=== PATIENT | female | born 1970 | race Caucasian/White ===

== ENCOUNTER 2022-07-04 20:42 | Inpatient (IN) | payer BC ==
[2022-07-04] MEDS ORDERED: cefTRIAXone\\ROCEPHIN 2 GM VIAL ONE (21:24)
[2022-07-04 21:38] LABS: #Basophils 0.1 10x3/uL (0.0-0.2); #Eosinphils 0.1 10x3/uL (0.0-0.5); #Monocytes 1.3 10x3/uL (0.0-1.1); #Neutrophils 11.4 10x3/uL (1.5-8.4); %Basophils 0.5 % (0.0-2.0); %Eosinophils 0.9 % (0.0-6.0); %Lymphocytes 11.2 % (18.0-47.0); %Monocytes 8.5 % (0.0-10.0); %Neutrophils 77.1 % (40.0-75.0); Hemoglobin 12.9 g/dL (12.0-15.5); Mean Corpuscular HGB CONC 34.6 g/dL (32.0-36.0); Mean Corpuscular Hemoglobin 27.9 pg (27.0-33.0); Mean Corpuscular Volume 80.7 fl (81.6-98.3); Mean Platelet Volume 10.1 fl (7.4-10.4); Platelet Count 374 10x3/uL (150-450); Red Blood Cell (RBC) Count 4.62 10x6/uL (3.90-5.03); White Blood Cell (WBC) Count 14.9 10x3/uL (3.5-10.5)
[2022-07-04 21:46] LABS: ALT (SGPT) 17 U/L (8-55); AST (SGOT) 18 U/L (5-34); Albumin 3.7 g/dL (3.5-5.0); Alkaline Phosphatase 143 U/L (40-110); Anion Gap 17 mmol/L (10-20); BUN (Urea Nitrogen) 8 mg/dL (9.8-20.1); Bilirubin, Total 0.4 mg/dL (0.2-1.2); Calc. Creatinine Clearance 0 mL/min (70-130); Carbon Dioxide 26 mmol/L (22-29); Chloride 96 mmol/L (98-107); Estimated GFR 95; Globulin 2.4 g/dL (2.4-3.5); Protein, Total 6.1 g/dL (6.0-8.3); Sodium 136 mmol/L (136-145)
[2022-07-04 21:47] LABS: Glucose 477 mg/dL (70-105)
[2022-07-04] MEDS ORDERED: Cefepime 2 GM VIAL ONE (21:47)
[2022-07-04] MEDS ORDERED: HYDROcodone/Acetaminophen 5/325 mg Tablet PO PRN (23:20)
[2022-07-04] MEDS ORDERED: Ondansetron ODT 4 MG TAB PO PRN (23:20)
[2022-07-04] MEDS ORDERED: Dextrose 50% Abboject 50 ML SYRINGE SLOW IVP PRN (23:20)
[2022-07-04] MEDS ORDERED: Ondansetron PF 4 MG/2 ML Vial IVP PRN (23:20)
[2022-07-04] MEDS ORDERED: Dextrose 5% in Water 1,000 ML IV PRN (23:20)
[2022-07-04] MEDS ORDERED: Potassium Chloride 10 MEQ in Premix Bag 1 BAG IVPB SCH (23:30)
[2022-07-04] MEDS ORDERED: Potassium Bicarbonate/Cit Ac 25 MEQ TAB ONE (23:37)
[2022-07-05 01:06] LABS: Lactic Acid 1.7 mmol/L (0.5-2.2)
[2022-07-05 01:07] VITALS: BMI 29.2
[2022-07-05] MEDS: Sodium Chloride 0.9% 1,000 ML IV SCH ×4 (01:22→23:05)
[2022-07-05] MEDS: HumaLOG 300 UNITS/3 ML VIAL SC PRN ×3 (01:22→20:19)
[2022-07-05 02:47] LABS: SARS-CoV-2 NAA Rapid Test Not Detected (NotDetected)
[2022-07-05 04:49] LABS: ALT (SGPT) 12 U/L (8-55); AST (SGOT) 10 U/L (5-34); Albumin 3.2 g/dL (3.5-5.0); Alkaline Phosphatase 110 U/L (40-110); Anion Gap 12 mmol/L (10-20); BUN (Urea Nitrogen) 7 mg/dL (9.8-20.1); Bilirubin, Total 0.3 mg/dL (0.2-1.2); Calc. Creatinine Clearance 144 mL/min (70-130); Calcium 8.4 mg/dL (7.8-10.44); Carbon Dioxide 28 mmol/L (22-29); Chloride 102 mmol/L (98-107); Estimated GFR 112; Globulin 2.8 g/dL (2.4-3.5); Glucose 80 mg/dL (70-105); Sodium 139 mmol/L (136-145)
[2022-07-05 04:55] LABS: #Basophils 0.1 10x3/uL (0.0-0.2); #Eosinphils 0.2 10x3/uL (0.0-0.5); #Monocytes 1.4 10x3/uL (0.0-1.1); #Neutrophils 9.5 10x3/uL (1.5-8.4); %Basophils 0.6 % (0.0-2.0); %Eosinophils 1.8 % (0.0-6.0); %Lymphocytes 15.2 % (18.0-47.0); %Monocytes 9.9 % (0.0-10.0); %Neutrophils 69.6 % (40.0-75.0); Hemoglobin 11.4 g/dL (12.0-15.5); Mean Corpuscular HGB CONC 34.7 g/dL (32.0-36.0); Mean Corpuscular Hemoglobin 28.2 pg (27.0-33.0); Mean Corpuscular Volume 81.4 fl (81.6-98.3); Platelet Count 340 10x3/uL (150-450); RBC Distribution Width 11.9 % (11.5-14.5); Red Blood Cell (RBC) Count 4.04 10x6/uL (3.90-5.03); White Blood Cell (WBC) Count 13.7 10x3/uL (3.5-10.5)
[2022-07-05] MEDS ORDERED: FLU VACC QS2022-23(6MOS UP)/PF 60 MCG/0.5 ML SYRINGE IM ONE (09:00)
[2022-07-05] MEDS ORDERED: Venlafaxine HCl XR 75 MG CAP PO SCH (09:00)
[2022-07-05] MEDS ORDERED: Electrolyte Replacement Protocol 1 EACH FS SCH (09:45)
[2022-07-05] MEDS ORDERED: Cefepime 2 GM in Sodium Chloride 0.9% 100 ML IVPB SCH (10:00)
[2022-07-05] MEDS ORDERED: Magnesium 2 GM/50 ML(in water) 2 GM in Premix Bag 1 BAG IVPB SCH (11:00)
[2022-07-05] MEDS ORDERED: Vancomycin HCl 1 GM in Sodium Chloride 0.9% 250 ML 250 ML IVPB SCH (11:00)
[2022-07-05] MEDS: Enoxaparin Sodium 40 MG/0.4 ML SYRINGE SC SCH (11:24)
[2022-07-05] MEDS: Guaifenesin DM 100-10/5 ML UDCUP PO PRN ×2 (11:27→15:40)
[2022-07-05] MEDS: Benzonatate 100 MG CAP PO PRN ×2 (11:27→18:06)
[2022-07-05] MEDS: ALPRAZolam 0.5 MG TAB PO PRN (11:27)
[2022-07-05] MEDS: Estradiol 1 MG TAB PO SCH (11:27)
[2022-07-05] MEDS: cefTRIAXone\\ROCEPHIN 1 GM in Sodium Chloride 0.9% 100 ML IVPB SCH (11:28)
[2022-07-05] MEDS: Azithromycin 500 MG in Sodium Chloride 0.9% 250 ML 250 ML IVPB SCH (11:29)
[2022-07-05 12:41] LABS: Potassium 2.9 mmol/L (3.5-5.1)
[2022-07-05] MEDS: Potassium Chloride 20 MEQ TAB PO SCH ×2 (13:38→18:06)
[2022-07-05] MEDS ORDERED: Acetaminophen/Codeine 12.5 ML UDCUP PO PRN (16:09)
[2022-07-05] MEDS: Acetaminophen W/ Codeine 5 ML UDCUP PO PRN (18:06)
[2022-07-05] MEDS: Venlafaxine HCl XR 75 MG CAP PO SCH (20:18)
[2022-07-05] MEDS: Lantus 1000 UNITS/10 ML VIAL SC SCH (20:18)
[2022-07-05] MEDS: Atorvastatin Calcium 20 MG TAB PO SCH (20:18)
[2022-07-05] MEDS ORDERED: Metoprolol Tartrate 25 MG TAB PO SCH (21:00)
[2022-07-05 22:21] LABS: Potassium 3.4 mmol/L (3.5-5.1)
[2022-07-05] MEDS ORDERED: Potassium Chloride 20 MEQ TAB PO SCH (22:45)
[2022-07-05] MEDS: Acetaminophen 325 MG TAB PO PRN (23:13)
[2022-07-06 05:25] LABS: Magnesium 2.1 mg/dL (1.6-2.6); Phosphorus 2.4 mg/dL (2.3-4.7)
[2022-07-06] MEDS: Sodium Chloride 0.9% 1,000 ML IV SCH ×3 (06:01→18:26)
[2022-07-06] MEDS: Enoxaparin Sodium 40 MG/0.4 ML SYRINGE SC SCH (09:00)
[2022-07-06] MEDS: Benzonatate 100 MG CAP PO PRN ×2 (09:00→20:13)
[2022-07-06] MEDS: Guaifenesin DM 100-10/5 ML UDCUP PO PRN (09:00)
[2022-07-06] MEDS: ALPRAZolam 0.5 MG TAB PO PRN ×2 (09:00→20:30)
[2022-07-06] MEDS: Montelukast Sodium 10 mg Tablet PO SCH (09:00)
[2022-07-06] MEDS: Estradiol 1 MG TAB PO SCH (09:00)
[2022-07-06] MEDS ORDERED: Potassium Chloride 20 MEQ TAB PO SCH (09:00)
[2022-07-06] MEDS: cefTRIAXone\\ROCEPHIN 1 GM in Sodium Chloride 0.9% 100 ML IVPB SCH (10:05)
[2022-07-06] MEDS: Azithromycin 500 MG in Sodium Chloride 0.9% 250 ML 250 ML IVPB SCH (10:05)
[2022-07-06] MEDS: Acetaminophen 325 MG TAB PO PRN (13:43)
[2022-07-06 20:12] LABS: Legionella Urinary Ag Negative (Negative); Strep pneumo Urine Ag NEGATIVE (NEGATIVE)
[2022-07-06] MEDS: Venlafaxine HCl XR 75 MG CAP PO SCH (20:13)
[2022-07-06] MEDS: Atorvastatin Calcium 20 MG TAB PO SCH (20:13)
[2022-07-06] MEDS: Lantus 1000 UNITS/10 ML VIAL SC SCH (20:15)
[2022-07-06] MEDS: HumaLOG 300 UNITS/3 ML VIAL SC PRN (20:17)
[2022-07-06 20:26] LABS: Hemoglobin A1c 6.7 % (4.0-6.0)
[2022-07-06] MEDS ORDERED: Triamcinolone 0.1% Cream 15 GM TUBE TOP PRN (21:57)
[2022-07-06] MEDS ORDERED: diphenhydrAMINE 25 MG CAP PO PRN (22:00)
[2022-07-07] MEDS: Sodium Chloride 0.9% 1,000 ML IV SCH ×4 (01:08→20:18)
[2022-07-07] MEDS: Acetaminophen W/ Codeine 5 ML UDCUP PO PRN ×4 (01:15→22:35)
[2022-07-07] MEDS: Benzonatate 100 MG CAP PO PRN ×2 (06:36→17:51)
[2022-07-07] MEDS: HumaLOG 300 UNITS/3 ML VIAL SC PRN (06:37)
[2022-07-07 08:21] LABS: Hemoglobin 10.7 g/dL (12.0-15.5); Mean Corpuscular HGB CONC 33.6 g/dL (32.0-36.0); Mean Corpuscular Hemoglobin 28.1 pg (27.0-33.0); Mean Corpuscular Volume 83.5 fl (81.6-98.3); Mean Platelet Volume 9.3 fl (7.4-10.4); Platelet Count 335 10x3/uL (150-450); RBC Distribution Width 12.3 % (11.5-14.5); Red Blood Cell (RBC) Count 3.81 10x6/uL (3.90-5.03); White Blood Cell (WBC) Count 10.6 10x3/uL (3.5-10.5)
[2022-07-07 08:22] LABS: MDiff Complete? YES
[2022-07-07 08:34] LABS: Anion Gap 12 mmol/L (10-20); BUN (Urea Nitrogen) 4 mg/dL (9.8-20.1); Calc. Creatinine Clearance 156 mL/min (70-130); Calcium 8.5 mg/dL (7.8-10.44); Carbon Dioxide 25 mmol/L (22-29); Chloride 108 mmol/L (98-107); Estimated GFR 114; Glucose 85 mg/dL (70-105); Potassium 3.4 mmol/L (3.5-5.1); Sodium 142 mmol/L (136-145)
[2022-07-07] MEDS: Guaifenesin DM 100-10/5 ML UDCUP PO PRN (08:45)
[2022-07-07] MEDS: Enoxaparin Sodium 40 MG/0.4 ML SYRINGE SC SCH (08:45)
[2022-07-07] MEDS: ALPRAZolam 0.5 MG TAB PO PRN (08:46)
[2022-07-07] MEDS: Montelukast Sodium 10 mg Tablet PO SCH (08:46)
[2022-07-07] MEDS: Estradiol 1 MG TAB PO SCH (08:49)
[2022-07-07] MEDS: cefTRIAXone\\ROCEPHIN 1 GM in Sodium Chloride 0.9% 100 ML IVPB SCH (08:58)
[2022-07-07] MEDS ORDERED: Potassium Chloride 20 MEQ TAB PO SCH (09:15)
[2022-07-07 09:46] LABS: Band 1 % (5-11); Eosinophils 6 % (0-10); Lymphocytes 19 % (21-51); Monocytes 8 % (0-10); Neutrophil 63 % (42-75); Reactive Lymphocytes 2 % (0-10)
[2022-07-07 09:47] LABS: Metamyelocyte 1 % (0-0)
[2022-07-07 09:48] LABS: Hypersemented Neutrophil SLIGHT; Toxic Granulation SLIGHT
[2022-07-07 09:50] LABS: Reflex for Review?? YES
[2022-07-07 09:51] LABS: Platelet Morphology Comment Appears Adequate; RBC Morphology Normal
[2022-07-07] MEDS: Azithromycin 500 MG in Sodium Chloride 0.9% 250 ML 250 ML IVPB SCH (11:52)
[2022-07-07] MEDS: Venlafaxine HCl XR 75 MG CAP PO SCH (21:29)
[2022-07-07] MEDS: Atorvastatin Calcium 20 MG TAB PO SCH (21:29)
[2022-07-07] MEDS: Lantus 1000 UNITS/10 ML VIAL SC SCH (21:30)
[2022-07-08] MEDS: Sodium Chloride 0.9% 1,000 ML IV SCH ×2 (04:34→09:31)
[2022-07-08 04:54] LABS: Potassium 3.6 mmol/L (3.5-5.1)
[2022-07-08] MEDS: Enoxaparin Sodium 40 MG/0.4 ML SYRINGE SC SCH (09:31)
[2022-07-08] MEDS: Estradiol 1 MG TAB PO SCH (09:31)
[2022-07-08] MEDS: Montelukast Sodium 10 mg Tablet PO SCH (09:32)
[2022-07-08] MEDS: ALPRAZolam 0.5 MG TAB PO PRN (09:32)
[2022-07-08] MEDS: Benzonatate 100 MG CAP PO PRN (09:32)
[2022-07-08] MEDS: Acetaminophen W/ Codeine 5 ML UDCUP PO PRN (09:35)
[2022-07-08 12:23] VITALS: BP 120/77; TEMP 98.1
== END 2022-07-08 16:00 | disposition home or self-care (01) | DRG 871 ==
LOC: CSHERS 20:42 → CSHTELE 23:18
PROVIDERS: ADMIT Internal Medicine; ATTEND Family Medicine
DX: A41.9 Sepsis, unspecified organism (principal); J18.9 Pneumonia, unspecified organism; E87.20 Acidosis, unspecified; E78.5 Hyperlipidemia, unspecified; I10 Essential (primary) hypertension; E11.9 Type 2 diabetes mellitus without complications; Z20.822 Contact with and (suspected) exposure to COVID-19; E87.6 Hypokalemia; Z88.8 Allergy status to other drugs, medicaments and biological substances; Z88.2 Allergy status to sulfonamides; Z79.899 Other long term (current) drug therapy; Z79.4 Long term (current) use of insulin; Z98.84 Bariatric surgery status
CPT/HCPCS: 36415; 36416; 71045; 80048; 80053; 83036; 83605; 83735; 83880; 84100; 84132; 84484; 85025; 85060; 87040; 87449; 87899; 93005; 94760; 96365; 96367; J0456; J0692; J0696; J1650; J1815; J3370; J3475; J3480; J3490; J7050; J7620

== ENCOUNTER 2023-04-12 22:53 | Emergency (ER) | payer BC ==
[~2023-04-12 22:53] MED LIST: Iopamidol 300 61% 100 ML VIAL FS ONE
[2023-04-12 23:49] LABS: #Eosinphils 0.2 10x3/uL (0.0-0.5); #Monocytes 0.9 10x3/uL (0.0-1.1); #Neutrophils 5.1 10x3/uL (1.5-8.4); %Basophils 0.4 % (0.0-2.0); %Eosinophils 2.5 % (0.0-6.0); %Lymphocytes 30.5 % (18.0-47.0); %Monocytes 9.7 % (0.0-10.0); %Neutrophils 56.1 % (40.0-75.0); Hematocrit 36.8 % (34.9-44.5); Hemoglobin 12.9 g/dL (12.0-15.5); Mean Corpuscular HGB CONC 35.1 g/dL (32.0-36.0); Mean Corpuscular Volume 79.8 fl (81.6-98.3); Mean Platelet Volume 9.1 fl (7.4-10.4); Platelet Count 336 10x3/uL (150-450); RBC Distribution Width 13.2 % (11.5-14.5); Red Blood Cell (RBC) Count 4.61 10x6/uL (3.90-5.03); White Blood Cell (WBC) Count 9.1 10x3/uL (3.5-10.5)
[2023-04-13 00:02] LABS: ALT (SGPT) 47 U/L (8-55); AST (SGOT) 40 U/L (5-34); Albumin 4.4 g/dL (3.5-5.0); Alkaline Phosphatase 63 U/L (40-110); Anion Gap 17 mmol/L (10-20); BUN (Urea Nitrogen) 9 mg/dL (9.8-20.1); Bilirubin, Total 0.4 mg/dL (0.2-1.2); Calc. Creatinine Clearance 0 mL/min (70-130); Carbon Dioxide 23 mmol/L (22-29); Chloride 95 mmol/L (98-107); Estimated GFR 106; Globulin 2.2 g/dL (2.4-3.5); Glucose 128 mg/dL (70-105); Potassium 2.9 mmol/L (3.5-5.1); Protein, Total 6.6 g/dL (6.0-8.3); Sodium 132 mmol/L (136-145)
[2023-04-13 00:03] LABS: Acetaminophen Less than 10 mcg/mL (10.0-30.0); Alcohol 195.6 mg/dL (Less than 10); Lipase 27 U/L (8-78); Salicylate Less than 8.0 mg/dL (15.0-30.0)
[2023-04-13 00:07] LABS: Troponin I Less than 0.010 ng/mL (< 0.028)
[2023-04-13] MEDS ORDERED: Morphine 2 MG/ML VIAL ONE ×2 (00:32→01:56)
[2023-04-13] MEDS ORDERED: Bupivacaine PF 0.5% 30 ML VIAL ONE (01:00)
[2023-04-13] MEDS ORDERED: Ketorolac Tromethamine 30 MG/ML VIAL ONE (01:56)
[2023-04-13] MEDS ORDERED: Triple Antibiotic Oint 1 GM Packet ONE (03:29)
== END 2023-04-13 03:42 | disposition home or self-care (01) ==
LOC: CSHERS 22:53
DX: S51.011A Laceration without foreign body of right elbow, initial encounter (principal); S00.81XA Abrasion of other part of head, initial encounter; E11.9 Type 2 diabetes mellitus without complications; Z79.4 Long term (current) use of insulin; I10 Essential (primary) hypertension; W19.XXXA Unspecified fall, initial encounter
CPT/HCPCS: 12002; 70450; 71045; 71260; 72125; 74177; 80053; 80307; 83690; 84484; 85025; 93005; 96374; 96375; 96376; J1885; J2272; Q9967; S0020